=== PATIENT | male | born 1975 | race American Indian/Alaskan Native ===

== ENCOUNTER 2022-02-12 14:54 | Emergency (ER) | payer OTHER | END 2022-02-12 16:00 | disposition home or self-care (01) | LOC: MW.ED 14:54 | DX: T16.2XXA Foreign body in left ear, initial encounter (principal); I10 Essential (primary) hypertension; E11.9 Type 2 diabetes mellitus without complications; Z91.018 Allergy to other foods; Z79.84 Long term (current) use of oral hypoglycemic drugs; Z86.16 Personal history of COVID-19 | CPT/HCPCS: 99281; 99282 ==